=== PATIENT | female | born 1950 ===

== ENCOUNTER 2018-07-20 15:15 | Emergency (ER) | payer MEDICARE ==
[2018-07-20 15:15] VITALS: BMI 28.8
--- NOTE | 2018-07-20 16:46 | ED PDOC ---
HPI: Trauma/Fall - HPI Time Seen by Provider: 07/20/18 15:33 Chief Complaint (Nursing): Trauma Chief Complaint (Provider): right hand and right knee pain History Per: Patient History/Exam Limitations: no limitations Onset/Duration Of Symptoms: Hrs (today) Associated Symptoms: denies: Dizziness, LOC Additional Complaint(s): 68 year old female, with a past medical history of HTN, hyperlipidemia, and diabetes, who was brought to the emergency department by ems for evaluation of right arm, hand and right knee pain s/p trip and fall in the street today. Patient reports she was walking when she lost her footing and fell on her right hand and right knee. She is also complaining of neck pain and states she [place] band[place] by [place]standers [place] the [place]. She denies any head trauma, LOC, dizziness, syncope or palpitations. No further medical complaints. PMD: None provided. Past Medical History Reviewed: Historical Data, Nursing Documentation, Vital Signs Vital Signs: Last Vital Signs Temp 98.5 F 07/20/18 15:19 Pulse 117 H 07/20/18 15:19 Resp 20 07/20/18 15:19 BP 182/78 H 07/20/18 15:19 Pulse Ox 98 07/20/18 15:19 - Medical History PMH: Colonic Polyps, Diabetes, HTN, Hypercholesterolemia Denies: Chronic Kidney Disease - Surgical History Surgical History: Tonsillectomy Other surgeries: x3 for collapsed lung - Family History Family History: States: Unknown Family Hx - Social History Current smoker - smoking cessation education provided: No Alcohol: Social Drugs: Denies - Immunization History Hx Tetanus Toxoid Vaccination: No Hx Influenza Vaccination: No Hx Pneumococcal Vaccination: No - Home Medications Home Medications: Ambulatory Orders Medication Instructions Recorded Glyburide 5 mg PO DAILY 05/18/13 Lisinopril 20 - 25 mg PO DAILY 05/18/13 MetFORMIN 1,000 mg PO BID 05/18/13 RX: Aspirin [Ecotrin] 1 tab PO DAILY 09/29/16 RX: amLODIPine [Norvasc] 1 tab PO DAILY 09/29/16 RX: Ibuprofen [Motrin Tab] 600 mg PO Q6 PRN 3 Days tab 07/20/18 - Allergies Allergies/Adverse Reactions: Allergies Allergy/AdvReac Type Severity Reaction Status Date / Time Penicillins AdvReac ANAPHYLAXIS Verified 07/20/18 15:19 Review of Systems ROS Statement: Except As Marked, All Systems Reviewed And Found Negative Cardiovascular: Negative for: Palpitations Musculoskeletal: Positive for: Neck Pain, Arm Pain (right), Hand Pain (right), Leg Pain (right knee) Neurological: Negative for: Headache, Dizziness, Other (LOC) Physical Exam - Reviewed Nursing Documentation Reviewed: Yes Vital Signs Reviewed: Yes - Physical Exam Appears: Positive for: Uncomfortable Head Exam: Positive for: ATRAUMATIC (No obvious trauma), NORMAL INSPECTION, NORMOCEPHALIC Skin: Positive for: Normal Color, Warm, Dry Eye Exam: Positive for: Normal appearance, EOMI, PERRL ENT: Positive for: Normal ENT Inspection, Pharynx Is (clear), TM Is/Are (intact) Neck: Negative for: Normal (pain on palpation to posterior left lateral neck), Painless ROM (pain with abduction to the left and left lateral rotation of neck. No pain on right lateral rotation, abduction to the right, flexion or extension of neck.) Cardiovascular/Chest: Positive for: Regular Rate, Rhythm. Negative for: Murmur Respiratory: Positive for: Normal Breath Sounds (CTS bilaterally). Negative for: Respiratory Distress Pulses-Dorsalis Pedis (L): 2+ Pulses-Dorsalis Pedis (R): 2+ Pulses-Radial (L): 2+ Pulses-Radial (R): 2+ Gastrointestinal/Abdominal: Positive for: Normal Exam, Soft. Negative for: Tenderness, Other (ecchymosis) Back: Positive for: Normal Inspection. Negative for: L CVA Tenderness, R CVA Tenderness, Vertebral Tenderness Extremity: Positive for: Normal ROM (Upper and lower extremities), Capillary Refill (<2 sec on the right hand with bilateral 2+ radial pulse), Swelling (Mild edema on the posterior aspect of the right hand over the 4th and 5th digits. ), Other (Pain on palpation of the right upper arm. She has superficial skin avulsions on the 5th digit of the right hand. Superficial excoriations over the right knee w/o any deformity, ecchymosis or edema noted). Negative for: Deformity (right upper arm, no obvious deformity, ecchymosis or excoriations) Lymphatic: Negative for: Adenopathy Neurologic/Psych: Positive for: Alert, Oriented. Negative for: Motor/Sensory Deficits (Able to flex, extend, abduct and adduct passively to right hand. Equal strength b/l. Also able to to flex and extend right leg at kne both passively and actively. B/l sensation intact to upper and lower extremities) - ECG O2 Sat by Pulse Oximetry: 98 (RA) Pulse Ox Interpretation: Normal Medical Decision Making Medical Decision Making: Time: 15:33 Initial Impression: Fall injuries Initial Plan: --Motrin tab 600 mg PO --Cervical Spine AP & LATERAL [RAD] --Hand right 3 views [RAD] --Reevaluation 16:55 Hand X-Ray FINDINGS: BONES: No acute fracture. JOINTS: Degenerative changes. SOFT TISSUES: Normal. OTHER FINDINGS: None. IMPRESSION: No demonstrated fracture dislocation. Cervical Spine X-Ray FINDINGS: BONES: Alignment maintained. No fracture. Dens Intact. DISC SPACES: Multilevel disc space narrowing with disc osteophyte complexes SOFT TISSUES: Normal. No prevertebral soft tissue swelling. OTHER FINDINGS: None. IMPRESSION: No acute fracture. Multilevel degenerative changes. Scribe Attestation: Documented by Desean Angel, acting as a scribe for Criss Chaparro PA-C Provider Scribe Attestation: All medical record entries made by the Scribe were at my direction and personally dictated by me. I have reviewed the chart and agree that the record accurately reflects my personal performance of the history, physical exam, medical decision making, and the department course for this patient. I have also personally directed, reviewed, and agree with the discharge instructions and disposition. Disposition - Clinical Impression Clinical Impression: Neck pain, Right hand pain - Disposition Referrals: Ravindra Ramirez MD [Family Provider] - Disposition: Routine/Home Disposition Time: 17:05 Condition: STABLE Additional Instructions: apply ice to hand and knee for the next 24hrs to reduce swelling. Keep Right knee covered for the next 24hrs and then leave open to the air. Return to ER if you develop visual changes, worsening neck, arm or knee pain despite taking Ibuprofen. Prescriptions: RX: Ibuprofen [Motrin Tab] 600 mg PO Q6 PRN 3 Days tab PRN Reason: Pain, Moderate (4-7) Instructions: Generalized Neck Pain (DC), Hand Pain (DC) Forms: [facility] (Angolan) Print Language: ISRAELI
--- NOTE | 2018-07-20 16:58 | RAD ---
PROCEDURE: Right Hand Radiographs. HISTORY: fall on hand COMPARISON: None. FINDINGS: BONES: No acute fracture. JOINTS: Degenerative changes. SOFT TISSUES: Normal. OTHER FINDINGS: None. IMPRESSION: No demonstrated fracture dislocation.
--- NOTE | 2018-07-20 16:59 | RAD ---
Date of service: 07/20/2018 PROCEDURE: Cervical Spine Radiographs. HISTORY: Pain. COMPARISON: None available. FINDINGS: BONES: Alignment maintained. No fracture. Dens Intact. DISC SPACES: Multilevel disc space narrowing with disc osteophyte complexes SOFT TISSUES: Normal. No prevertebral soft tissue swelling. OTHER FINDINGS: None. IMPRESSION: No acute fracture. Multilevel degenerative changes.
[2018-07-20 17:12] VITALS: BP 149/67; PULSE 96; RESP 18; TEMP 98.3
[2018-07-20 17:14] VITALS: O2SAT 98
== END 2018-07-20 17:20 | disposition home or self-care (01) ==
LOC: H.ER 15:15
DX: M79.641 Pain in right hand (principal); M54.2 Cervicalgia; E11.9 Type 2 diabetes mellitus without complications; E78.00 Pure hypercholesterolemia, unspecified; I10 Essential (primary) hypertension; Z79.84 Long term (current) use of oral hypoglycemic drugs; Z88.0 Allergy status to penicillin